=== PATIENT | female | born 1970 | race Hispanic/Latino ===

== ENCOUNTER 2019-12-31 21:32 | Emergency (ER) | payer BC, SELFPAY ==
[2019-12-31] MEDS ORDERED: HYDROCODONE/APAP 5/325 MG TAB ONE (22:12)
--- NOTE | 2019-12-31 22:38 | ER ---
Nurse's Notes [facility] Name: Mahsa Bruno Age: 49 yrs Sex: Female : 1970 Arrival Date: 12/31/2019 Time: 21:34 Bed 23 Private MD: Diagnosis: Psoriasis;Rash and other nonspecific skin eruption Presentation: 12/31 21:43 Presenting complaint: Patient states: Rash on arms started today. Rash on legs comes ca1 and go has been there for about 6 months, but today ankles are swollen and was hurting. Transition of care: patient was not received from another setting of care. Onset of symptoms was December 31, 2019. Risk Assessment: Do you want to hurt yourself or someone else? Patient reports no desire to harm self or others. Initial Sepsis Screen: Does the patient meet any 2 criteria? No. Patient's initial sepsis screen is negative. Does the patient have a suspected source of infection? No. Patient's initial sepsis screen is negative. Care prior to arrival: None. 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 Patient has never been vaccinated. - Coronavirus screen:: The patient has NOT traveled to [place] in the past 14 days. The patient has NOT had contact with known/suspected case of Coronavirus?. - Social history:: Smoking status: Patient reports the use of cigarette tobacco products, 1-2 cigarettes a day. - Ebola Screening: : Patient negative for fever greater than or equal to 101.5 degrees Fahrenheit, and additional compatible Ebola Virus Disease symptoms Patient denies exposure to infectious person Patient denies travel to an Ebola-affected area in the 21 days before illness onset No symptoms or risks identified at this time. Screenin:46 Abuse screen: Denies threats or abuse. Denies injuries from another. Nutritional mg2 screening: No deficits noted. Tuberculosis screening: No symptoms or risk factors identified. Fall Risk None identified. Assessment: 21:51 General: Appears in no apparent distress. comfortable, Behavior is calm, cooperative. mg2 Pain: Denies pain. Unable to use pain scale. Neuro: Level of Consciousness is awake, alert, obeys commands, Oriented to person, place, time, situation. Cardiovascular: Capillary refill < 3 seconds Patient's skin is warm and dry. Respiratory: Airway is patent Respiratory effort is even, unlabored, Respiratory pattern is regular, symmetrical. GI: No signs and/or symptoms were reported involving the gastrointestinal system. : No signs and/or symptoms were reported regarding the genitourinary system. EENT: No signs and/or symptoms were reported regarding the EENT system. Derm: Rash noted that is red, raised, Reports itching. Musculoskeletal: Circulation, motion, and sensation intact. Capillary refill < 3 seconds. Vital Signs: 21:45 BP 174 / 91; Pulse 76; Resp 17 S; Temp 97.2(O); Pulse Ox 100% on R/A; Weight 89.81 kg ca1 (R); Height 5 ft. (152.40 cm) (R); Pain 8/10; 22:49 BP 177 / 90; Pulse 78; Resp 18; Temp 98.5; Pulse Ox 100% on R/A; mg2 21:45 Body Mass Index 38.67 (89.81 kg, 152.40 cm) ca1 ED Course: 21:34 Patient arrived in ED. cl3 21:38 [facility] Holl[facility]C [facility] snw 21:38 Rolando Rasmussen MD is Attending Physician. snw 21:44 Triage completed. ca1 21:45 Jose Mcmahan, BHAVANA is Primary Nurse. mg2 21:45 Arm band placed on right wrist. ca1 21:47 Patient has correct armband on for positive identification. mg2 21:51 No provider procedures requiring assistance completed. Patient did not have IV access mg2 during this emergency room visit. 22:00 Strep swab sent to lab. jp3 22:09 Strep Sent. jp3 22:10 Safety checks: Family/friend present: yes. Warm blanket given. Verbal reassurance given.jp3 22:34 Throat Culture Sent. jp3 Administered Medications: 22:13 Drug: [place] 5 mg-325 mg 1 tabs Route: PO; mg2 22:48 Follow up: Response: No adverse reaction; Marked relief of symptoms mg2 Outcome: 22:37 Discharge ordered by MD. vigil 22:50 Discharged to home ambulatory, with family. mg2 22:50 Condition: stable 22:50 Discharge instructions given to patient, family, Instructed on discharge instructions, follow up and referral plans. medication usage, Demonstrated understanding of instructions, follow-up care, medications, Prescriptions given X 2. 22:51 Patient left the ED. mg2 Signatures: Cassy Hollis, CLINICAL NURSE-C CLINICAL NURSE-Csnw Jose Mcmahan, BHAVANA RN mg2 Daniel Dixon jp3 Kim Hendricks RN RN ca1 Robert Queen cl3
--- NOTE | 2019-12-31 22:38 | EDPHYS ---
Physician Documentation [facility] Name: Mahsa Bruno Age: 49 yrs Sex: Female : 1970 Arrival Date: 12/31/2019 Time: 21:34 Bed 23 Private MD: ED Physician Rolando Rasmussen HPI: 12/31 22:05 This 49 yrs old Female presents to ER via Ambulatory with complaints of Rash. snw 22:05 The patient's rash thought to be caused by Psoriasis Dermatitis. The rash is located on snw the right arm, left arm, right leg and left leg. The rash can be described as papular rash to upper extremities c/w dermatitis, lower extremities with psoriatic changes. Onset: The symptoms/episode began/occurred acutely. Severity of symptoms: At their worst the symptoms were moderate. The patient has experienced similar episodes in the past. It is unknown whether or not the patient has recently seen a physician. 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 Patient has never been vaccinated. - Coronavirus screen:: The patient has NOT traveled to [place] in the past 14 days. The patient has NOT had contact with known/suspected case of Coronavirus?. - Social history:: Smoking status: Patient reports the use of cigarette tobacco products, 1-2 cigarettes a day. - Ebola Screening: : Patient negative for fever greater than or equal to 101.5 degrees Fahrenheit, and additional compatible Ebola Virus Disease symptoms Patient denies exposure to infectious person Patient denies travel to an Ebola-affected area in the 21 days before illness onset No symptoms or risks identified at this time. ROS: 22:04 Constitutional: Negative for fever, chills, and weight loss, Eyes: Negative for injury, snw pain, redness, and discharge, ENT: Negative for injury, pain, and discharge, Neck: Negative for injury, pain, and swelling, Cardiovascular: Negative for chest pain, palpitations, and edema, Respiratory: Negative for shortness of breath, cough, wheezing, and pleuritic chest pain, Abdomen/GI: Negative for abdominal pain, nausea, vomiting, diarrhea, and constipation, Back: Negative for injury and pain, : Negative for injury, bleeding, discharge, and swelling, MS/Extremity: Negative for injury and deformity, Neuro: Negative for headache, weakness, numbness, tingling, and seizure, Psych: Negative for depression, anxiety, suicide ideation, homicidal ideation, and hallucinations. 22:04 Skin: Positive for rash, of the upper and lower extremities. Exam: 21:59 Constitutional: This is a well developed, well nourished patient who is awake, alert, snw and in no acute distress. Head/Face: Normocephalic, atraumatic. Eyes: Pupils equal round and reactive to light, extra-ocular motions intact. Lids and lashes normal. Conjunctiva and sclera are non-icteric and not injected. Cornea within normal limits. Periorbital areas with no swelling, redness, or edema. Neck: Trachea midline, no thyromegaly or masses palpated, and no cervical lymphadenopathy. Supple, full range of motion without nuchal rigidity, or vertebral point tenderness. No Meningismus. Chest/axilla: Normal chest wall appearance and motion. Nontender with no deformity. No lesions are appreciated. Cardiovascular: Regular rate and rhythm with a normal S1 and S2. No gallops, murmurs, or rubs. Normal PMI, no JVD. No pulse deficits. Respiratory: Lungs have equal breath sounds bilaterally, clear to auscultation and percussion. No rales, rhonchi or wheezes noted. No increased work of breathing, no retractions or nasal flaring. Abdomen/GI: Soft, non-tender, with normal bowel sounds. No distension or tympany. No guarding or rebound. No evidence of tenderness throughout. Back: No spinal tenderness. No costovertebral tenderness. Full range of motion. 21:59 Neuro: Awake and alert, GCS 15, oriented to person, place, time, and situation. Cranial nerves II-XII grossly intact. Motor strength 5/5 in all extremities. Sensory grossly intact. Cerebellar exam normal. Normal gait. Psych: Awake, alert, with orientation to person, place and time. Behavior, mood, and affect are within normal limits. 21:59 ENT: Exam is negative for acute changes. 21:59 Skin: Appearance: normal except for affected area, rash can be described as papular, on the Bilateral upper extremities, plaque like rash over lower lateral ankle. Vital Signs: 21:45 BP 174 / 91; Pulse 76; Resp 17 S; Temp 97.2(O); Pulse Ox 100% on R/A; Weight 89.81 kg ca1 (R); Height 5 ft. (152.40 cm) (R); Pain 8/10; 22:49 BP 177 / 90; Pulse 78; Resp 18; Temp 98.5; Pulse Ox 100% on R/A; mg2 21:45 Body Mass Index 38.67 (89.81 kg, 152.40 cm) ca1 MDM: 21:43 Patient medically screened. snw 22:38 Data reviewed: vital signs, nurses notes. Data interpreted: Pulse oximetry: on room air snw is 100 %. Interpretation: normal. Counseling: I had a detailed discussion with the patient and/or guardian regarding: the historical points, exam findings, and any diagnostic results supporting the discharge/admit diagnosis, the presence of at least one elevated blood pressure reading (>120/80) during this emergency department visit, lab results, the need for outpatient follow up, to return to the emergency department if symptoms worsen or persist or if there are any questions or concerns that arise at home. Special discussion: I have referred the patient to see his PCP for further evaluation of high blood pressure. Based on the history and exam findings, there is no indication for further emergent testing or inpatient evaluation. I discussed with the patient/guardian the need to see the rental sales associate for further evaluation of the symptoms. I discussed with the patient/guardian the need to see the primary care provider for further evaluation of the symptoms. 12/31 21:58 Order name: Strep; Complete Time: 22:36 snw 12/31 22:33 Order name: Throat Culture EDMS Administered Medications: 22:13 Drug: [place] 5 mg-325 mg 1 tabs Route: PO; mg2 22:48 Follow up: Response: No adverse reaction; Marked relief of symptoms mg2 Disposition: 01/01 08:26 Co-signature as Attending Physician, Rolando Rasmussen MD I agree with the assessment and tw4 plan of care. Disposition: 12/31/19 22:37 Discharged to Home. Impression: Psoriasis, Rash and other nonspecific skin eruption. - Condition is Stable. - Discharge Instructions: Allergies, Adult, Psoriasis, Rash. - Prescriptions for Elimite 5 % Topical Cream - apply 1 application by TOPICAL route one time Wash after 12 hours.; 60 gram. Zyrtec 10 mg Oral Tablet - take 1 tablet by ORAL route once daily As needed; 20 tablet. - Work release form, Medication Reconciliation Form, Thank You Letter, Antibiotic Education, Prescription Opioid Use form. - Follow up: Emergency Department; When: As needed; Reason: Worsening of condition. Follow up: Private Physician; When: 2 - 3 days; Reason: Recheck today's complaints, Continuance of care, Re-evaluation by your physician. Signatures: Dispatcher [employer] EDMS Cassy Hollis, EVA-C LOSS MITIGATION SPECIALIST-Csnw Rolando Rasmussen MD MD tw4 Jose Mcmahan, BHAVANA RN mg2 Kim Hendricks RN RN ca1 Corrections: (The following items were deleted from the chart) 12/31 22:51 22:37 12/31/2019 22:37 Discharged to Home. Impression: Psoriasis; Rash and other mg2 nonspecific skin eruption. Condition is Stable. Forms are Medication Reconciliation Form, Thank You Letter, Antibiotic Education, Prescription Opioid Use. Follow up: Emergency Department; When: As needed; Reason: Worsening of condition. Follow up: Private Physician; When: 2 - 3 days; Reason: Recheck today's complaints, Continuance of care, Re-evaluation by your physician. snw
[2019-12-31 23:40] VITALS: O2SAT 100
[2019-12-31 23:41] VITALS: BP 177/90; TEMP 98.5
== END 2019-12-31 22:51 | disposition home or self-care (01) ==
LOC: ER 21:32
DX: L40.9 Psoriasis, unspecified (principal); Z88.0 Allergy status to penicillin; F17.210 Nicotine dependence, cigarettes, uncomplicated
CPT/HCPCS: 87070; 87081; 99283